=== PATIENT | female | born 1955 | race Caucasian/White ===

== ENCOUNTER → 2024-07-18 09:34 | Outpatient (BNVA) | payer MEDICARE, MEDICAID, SELFPAY | PROVIDERS: PCP Family Medicine; Visit Provider Neurological Surgery | DX: Z45.42 Encounter for adjustment and management of neurostimulator (principal) | CPT/HCPCS: 99202 ==

== ENCOUNTER 2024-08-21 08:25 | Day surgery (SDC) | payer MEDICARE, MEDICAID, SELFPAY ==
[2024-08-21] VITALS (7 sets, daily range): BP systolic 91–150; BP diastolic 40–69; PULSE 73–90; RESP 12–17; TEMP 36.4–36.6; O2SAT 96–100; BMI 30.4
--- NOTE | 2024-08-21 08:41 | MHC.SHP ---
Pre-Procedural Eval Section A - 24 Hr Update-Section A only Date of Service: 08/21/24 Section B - Complete if H&P > 30 days Chief Complaint: Encounter for adjustment and management Allergies: Allergies Allergy/AdvReac Type Severity Reaction Status Date / Time Penicillins Allergy Unknown Verified 08/19/24 10:29 Review of Systems Sugical H&P ROS: Negative: Constitution, Cardiovascular, Respiratory, Neurological, Psychiatric, Hem-Onc, Allergic/Immunologic, Gastrointestinal, Genitourinary, Musculoskeletal, Integumentary, Endocrine and Eyes/Ears/Nose/Throat Exam Surgical H&P Exam: Not Evaluated: HEENT, Not Evaluated: Heart, Not Evaluated: Lungs, Not Evaluated: Extremities, Not Evaluated: Abdomen, Not Evaluated: Skin and Not Evaluated: Neurological Exam Comment: Patient A&OX4 NAD. Proposed surgical site clean with no signs of recent trauma or surgery. Plan Diagnosis/Plan: Unchanged I have reviewed the history and physical and performed a pertinent physical examination on my patient. No changes have occurred unless specified. Plan remains the same, Left sided battery change Time Spent With Patient Time: Total time managing care of this patient today __15__ minutes.
[2024-08-21] MEDS: methocarbamoL 750 MG TABLET PO (08:55)
[2024-08-21] MEDS: Gabapentin 300 MG CAPSULE PO (08:55)
[2024-08-21] MEDS: Lactated Ringers 1,000 ML 100 ML IVCONT (08:58)
--- NOTE | 2024-08-21 09:55 | HO.ANESPROP2 ---
Documented by User: Kavitha Davis NP 08/20/24 10:26 HPI - Anesthesia Eval Consult details Narrative: 69yo F for Spinal Stimulation Generator Change PMFSH Active Problems Active Problems: All Active Problems Battery end of life of spinal cord stimulator (Acute) Past Medical History Medical History (Updated 08/20/24 @ 10:26 by Kavitha Davis NP) RBBB Allergic rhinitis DJD (degenerative joint disease) Chronic pain PTSD (post-traumatic stress disorder) Depression Mixed hyperlipidemia Diabetes Surgical History Surgical History (Updated 08/19/24 @ 11:31 by Virginia Hernandez RN) Hx of laparoscopy History of knee replacement History of hip replacement Social History Social History Patient Tobacco Use Status: Former Tobacco user Tobacco use type: Cigarette Second Hand Smoke Exposure: No Use of substances other than those prescribed or required for medical reasons: No Have you been hit, kicked, punched, or otherwise hurt by someone within the past year? If so, by whom?: No Are you DNR?: No Advance Directives: No Advance Directives Information Provided: Yes Advance Directives on File: No Recently lost weight without trying: No Nutrition Risks: No Nutritional Risk Meds Allergies Allergy/AdvReac Type Severity Reaction Status Date / Time Penicillins Allergy Unknown Verified 08/19/24 10:29 Home Medications ?Medication ?Instructions ?Recorded ?Confirmed ?Last Taken ?Type ascorbic acid (vitamin C) 500 mg 500 mg PO DAILY 08/19/24 08/19/24 Unknown History tablet (Vitamin C) cetirizine 10 mg tablet 10 mg PO QD-BID PRN itch 08/19/24 08/19/24 Unknown History cyclobenzaprine 10 mg tablet 10 mg PO BEDTIME 08/19/24 08/19/24 Unknown History hydrocodone 5 mg-acetaminophen 325 1 tab PO TID PRN Pain 08/19/24 08/19/24 Unknown History mg tablet lamotrigine 100 mg tablet 100 mg PO DAILY 08/19/24 08/19/24 Unknown History lisinopril 5 mg tablet 5 mg PO QAM 08/19/24 08/19/24 Unknown History sennosides 8.6 mg tablet (senna) 17.2 mg PO BEDTIME PRN Constipation 08/19/24 08/19/24 Unknown History simvastatin 40 mg tablet 40 mg PO BEDTIME 08/19/24 08/19/24 Unknown History venlafaxine 75 mg capsule,extended 75 mg PO DAILY 08/19/24 08/19/24 Unknown History release 24 hr Assessment and Plan Assessment Anesthesia Assessment: Chart Reviewed Documented by User: Pepper Purvis DO 08/21/24 10:00 PMF Past Medical History Medical History (Updated 08/20/24 @ 10:26 by Kavitha Davis NP) RBBB Allergic rhinitis DJD (degenerative joint disease) Chronic pain PTSD (post-traumatic stress disorder) Depression Mixed hyperlipidemia Diabetes Family History Family history of problems with anesthesia: No Surgical History Surgical History (Updated 08/19/24 @ 11:31 by Virginia Hernandez RN) Hx of laparoscopy History of knee replacement History of hip replacement History of Problems with Anesthesia: No Social History Social History Patient Tobacco Use Status: Former Tobacco user Tobacco use type: Cigarette Second Hand Smoke Exposure: No Use of substances other than those prescribed or required for medical reasons: No Have you been hit, kicked, punched, or otherwise hurt by someone within the past year? If so, by whom?: No Are you DNR?: No Advance Directives: No Advance Directives Information Provided: Yes Advance Directives on File: No Recently lost weight without trying: No Nutrition Risks: No Nutritional Risk Meds Allergies Allergy/AdvReac Type Severity Reaction Status Date / Time Penicillins Allergy Unknown Verified 08/19/24 10:29 Home Medications ?Medication ?Instructions ?Recorded ?Confirmed ?Last Taken ?Type ascorbic acid (vitamin C) 500 mg 500 mg PO DAILY 08/19/24 08/19/24 Unknown History tablet (Vitamin C) cetirizine 10 mg tablet 10 mg PO QD-BID PRN itch 08/19/24 08/19/24 Unknown History cyclobenzaprine 10 mg tablet 10 mg PO BEDTIME 08/19/24 08/19/24 Unknown History hydrocodone 5 mg-acetaminophen 325 1 tab PO TID PRN Pain 08/19/24 08/19/24 Unknown History mg tablet lamotrigine 100 mg tablet 100 mg PO DAILY 08/19/24 08/19/24 Unknown History lisinopril 5 mg tablet 5 mg PO QAM 08/19/24 08/19/24 Unknown History sennosides 8.6 mg tablet (senna) 17.2 mg PO BEDTIME PRN Constipation 08/19/24 08/19/24 Unknown History simvastatin 40 mg tablet 40 mg PO BEDTIME 08/19/24 08/19/24 Unknown History venlafaxine 75 mg capsule,extended 75 mg PO DAILY 08/19/24 08/19/24 Unknown History release 24 hr Exam Exam Date and Time: 08/21/24954 Height,Weight and Vital Signs: Height 5 ft 1 in Weight 73.028 kg Vital Signs Temperature 97.6 F 08/21/24 09:02 Pulse Rate 90 08/21/24 09:02 Respiratory Rate 16 08/21/24 09:02 Blood Pressure 133/64 08/21/24 09:02 Pulse Oximetry 96 08/21/24 09:02 Oxygen Delivery Method Room Air 08/21/24 09:02 Temperature 97.6 F 08/21/24 09:02 Pulse Rate 90 08/21/24 09:02 Respiratory Rate 16 08/21/24 09:02 Blood Pressure 133/64 08/21/24 09:02 Pulse Oximetry 96 08/21/24 09:02 Oxygen Delivery Method Room Air 08/21/24 09:02 Airway Mallampati Class: II TM Dist: >3cm Neck ROM: Full Partial: Upper and Lower Heart: S1S2 Lungs: CTAB Assessment and Plan Assessment Anesthesia Assessment: Anesthesia Plan Discussed and Chart Reviewed Final Anesthetic Review Family History of Problems with Anesthesia: No History of Problems with Anesthesia: No NPO: Yes ASA Class: II Final Preanesthetic Review: No Changes in Pt Med Stat, Meds/Allgs Chart Reviewed, Consent Obtained/Reviewed and Anes Risks/Benef Reviewed Patient Risk: Low Procedure Risk: Low Anesthetic Plan Anesthetic Plan: MAC: and Agree w/ Assess. and Plan Disposition: Standard PACU
--- NOTE | 2024-08-21 12:07 | P.OP_ITS ---
Operative Note Operative Note Date of Service: 08/21/24 Narrative: Preop diagnosis: Battery/generator dysfunction Postop diagnosis: Same Procedure: Spinal cord stimulator battery replacement Surgeon: Leroy Swanson MD Assist: MADDIE Smith Description of procedure: This 69-year-old female suffering from a chronic pain syndrome for which she received a spinal cord stimulator. The battery is dysfunction and will be replaced. The procedure complications were explained.The patient was consented. The patient was brought to the operating room and moderate sedation was applied. Patient was turned on her lateral side with the left side up. Prepping and draping was done followed by time-out. Local anesthetic was injected. The physician assistant clinical nurse manager opened the battery site and explanted the device. The battery was disconnected and a new battery was connected and tested successfully. The new generator was inserted into the pocket. Hemostasis was done. The incision was closed in 2 layers by the physician assistant clinical nurse manager. Op-site was placed to cover the incision. All sponge needle counts were correct. Patient was transported stable to recovery. Anesthesia: Moderate sedation Estimated blood loss: Minimal Specimen: None Surgical time: 30 minutes Deposition: Discharged home
--- NOTE | 2024-08-21 12:18 | PM.DS ---
DS: Providers Provider Date of Service: 08/21/24 Primary care physician: Unknown Physician DS: Summary Time Attestation Discharge Coordination Time (in mins): 15 Quality: Safe Use of Opioids Does Pt have an Active Cancer Diagnosis on the Problem List?: No Quality: Stroke Does the patient have a stroke diagnosis?: No Physical Exam Vital Signs: Vital Signs: Last Vital Signs Temp 97.6 F 08/21/24 09:02 Pulse 90 08/21/24 09:02 Resp 16 08/21/24 09:02 BP 133/64 08/21/24 09:02 Pulse Ox 96 08/21/24 09:02 O2 Del Method Room Air 08/21/24 09:02 BMI result Body Mass Index 30.4 Discharge Plan Discharge Patient Disposition: Home, Self-Care Referrals: Physician,Unknown J [Primary Care Provider] - 1 Week Discharge Medications: New sulfamethoxazole-trimethoprim [Bactrim DS] 800-160 mg tablet 1 tab PO BID 3 Days Qty: 6 0RF Continued cyclobenzaprine 10 mg tablet 10 mg PO BEDTIME sennosides [senna] 8.6 mg tablet 17.2 mg PO BEDTIME PRN (Reason: Constipation) venlafaxine 75 mg capsule,extended release 24hr 75 mg PO DAILY cetirizine 10 mg tablet 10 mg PO QD-BID PRN (Reason: itch) hydrocodone-acetaminophen 5-325 mg tablet 1 tab PO TID PRN (Reason: Pain) simvastatin 40 mg tablet 40 mg PO BEDTIME ascorbic acid (vitamin C) [Vitamin C] 500 mg Tablet 500 mg PO DAILY lisinopril 5 mg tablet 5 mg PO QAM lamotrigine 100 mg tablet 100 mg PO DAILY Discharge Orders: Discharge Order (Routine); Ordered 08/21/24 Ordered By: Jadiel Garcia Diet: Advance to usual diet Activity on Discharge: As tolerated Activity Restrictions/Additional Instructions: After your spinal surgery we ask you to observe the following restrictions/guidelines: Activity: It is normal to feel some discomfort as you increase your activity, but that will improve with time. We ask you avoid heavy lifting or acitivities that cause pain. As a general rule, 8lbs is a safe limit for lifting right after surgery. Stay well hydrated. It is OK to walk up and down stairs You may return to driving when you are off narcotics (such as vicodin, oxycodone, dilaudid, etc), and you are back to normal functional capacity. If you have any concerns please check with office before driving. Return to work is specific to each patient and each surgery, so please speak with your doctor/PA at first follow up. Please bring paperwork such as FMLA at that time if you need it filled out. Medications: A 3 day course of Bactrim (anibiotic) was sent in to your pharmacy ([facility] in [place]) please pick this up today and start taking it today. We recommend you take 1,000mg Tylenol every 8 hours for the first few weeks after surgery, if you do not have any liver issues and can tolerate this medication. Do not exceed 4,000mg daily. Continue taking your narcotic pain medication as prescribed. If you are on a narcotic, it is a good idea to take a stool softener such as colace or senna to avoid constipation If you take blood thinner such as aspirin, Plavix, Coumadin, Effient, Eliquis etc for conditions such as Afib, DVT, Pulmonary embolus, coronary disease, stents etc please speak with your surgeon about specific details as to when you can resume these medications. You can resume NSAIDs on post op day 1 (eg: Motrin, Naproxen, etc). Follow up: Please call the office, , after surgery to arrange a 3 week follow up for wound check. Wound Care: You may remove your dressing on the first day after surgery. ?You may ?leave open to air. Please do not remove the steri strips underneath. they will fall off on their own in one week. IT IS NORMAL FOR THE WOUND TO OOZE OR BE BLOODY FOR A FEW DAYS AFTER SURGERY. ?IF THIS HAPPENS JUST PLACE NEW DRESSING OVER IT TO AVOID STAINING CLOTHES. You may shower on post op day # 1 We ask that you do not let the water soak the wound. If it does get wet, just towel dry lightly. Please do not scrub your incision or place any type of chemical/ointment on the wound. No tub baths, pools or jacuzzis for one month. If you have any leaking or redness from your wound, or fevers, please call the office. Print Language: Korean
== END 2024-08-21 14:21 | disposition home or self-care (01) ==
PROVIDERS: Visit Provider Neurological Surgery
PROC: (CPT 63685; principal; 2024-08-21 11:30)
DX: Z45.42 Encounter for adjustment and management of neurostimulator (principal); G89.29 Other chronic pain; M19.90 Unspecified osteoarthritis, unspecified site; F43.10 Post-traumatic stress disorder, unspecified; E78.2 Mixed hyperlipidemia; E11.9 Type 2 diabetes mellitus without complications; F32.A Depression, unspecified; Z96.649 Presence of unspecified artificial hip joint; Z96.659 Presence of unspecified artificial knee joint; Z79.899 Other long term (current) drug therapy; Z88.0 Allergy status to penicillin; Z87.891 Personal history of nicotine dependence
CPT/HCPCS: 63685; C1787; C1820; J0131; J0690; J1100; J1596; J2003; J2250; J2405; J2704; J3010

== ENCOUNTER 2024-09-11 10:19 | Outpatient (AMB) | payer MEDICARE, MEDICAID, SELFPAY ==
--- NOTE | 2024-09-11 10:23 | A.SPINEOV_ITS ---
Intake Visit Reasons: 1st post op Intake Note: Ms. Kuhn is here today for her 1st post op. Mine Boss Required: No Allergies Penicillins Allergy (Verified 09/11/24 10:25) Unknown Assessment & Plan Assessment & Plan (1) Battery end of life of spinal cord stimulator: Code(s): Z45.42 - Encounter for adjustment and management of neurostimulator Category: Medical Plan Neli was seen today for her 1st postoperative visit after having her SCS battery replaced. She is overall doing well since her battery replacement and states she has zero pain. She is glad that she finally has some relief of her pain. She was accompanied by the [employer] sales representative supervisor today who helped adjust her battery setting. Her incision site still had steristrips on it and unfortunately she wears her pants beronica high on her waist, so her beltline fell direclty on top of the incision despite our attempts to avoid this by placing her device slightly higher up. There was no redness or inflammation over the incision site but there was some very slight nonunion noted near the right corner. No purulence expressed from this area. I did cleanse it and provide her with 5 days Abx coverage as a prophylactic measure. Neli may follow up on an as needed basis assuming her wound continues to heal well. She was advised to f/u with Dr. Phillips as needed. Jadiel Swanson MD,PhD [facility] Medications: New sulfamethoxazole-trimethoprim 800-160 mg (Bactrim DS) 1 tab PO Q12H 5 days 10 tabs 0RF surgical prophylaxis Coding Level of Care Code Global (76440) Diagnoses Battery end of life of spinal cord stimulator Z45.42
== END 2024-09-11 10:51 | disposition home or self-care (01) ==
LOC: HO.HNS 10:20
PROVIDERS: Visit Provider Physician Assistant
DX: Z45.42 Encounter for adjustment and management of neurostimulator (principal)
CPT/HCPCS: 99024

== ENCOUNTER → 2024-09-11 10:19 | Outpatient (BNVA) | payer MEDICARE, MEDICAID, SELFPAY | PROVIDERS: Visit Provider Physician Assistant | DX: Z45.42 Encounter for adjustment and management of neurostimulator (principal) | CPT/HCPCS: 99212 ==